=== PATIENT | female | born 1970 | race Caucasian/White ===

== ENCOUNTER 2024-01-10 15:24 | Emergency (ER) | payer OTHER, SELFPAY ==
[2024-01-10 15:46] VITALS: BP 112/74; PULSE 63; TEMP 36.2; O2SAT 99; BMI 25.1
--- NOTE | 2024-01-10 15:56 | XR_ITS ---
Patient: SHANNAN MESSINA Facility:?[facility] Patient ID:?[id number] Site Patient ID:?[id number]. Site :?[id number] Study:?XRay-Extremity Left FOREARM-01/10/2024 4:06:26 PM Ordering Physician:?DR. HU Final Report: INDICATION: Injury, not otherwise described. COMPARISON: None available. TECHNIQUE: Views: 3 FINDINGS: Mineralization: Normal. Alignment: Normal. Bones and Joints: No fracture. Sensitivity of imaging for detection of trauma is improved with a specific history as to the anatomical region of concern. Soft Tissues: Focal posterior soft tissue swelling of the mid forearm. IMPRESSION: Focal soft tissue swelling described above. Dictated by Luis Alfredo Rowland MD @ 01/10/2024 4:24:11 PM Signed by:?Luis Alfredo Rowland MD @01/10/2024 4:24:11 PM (Electronic Signature)
--- NOTE | 2024-01-10 15:56 | XR_ITS ---
Patient: SHANNAN MESSINA Facility:?[facility] Patient ID:?[id number] Site Patient ID:?[id number]. Site :?[id number] Study:?XRay-Extremity Left HAND-01/10/2024 4:08:34 PM Ordering Physician:?DR HU Final Report: INDICATION: Injury, not otherwise described. COMPARISON: None available. TECHNIQUE: Views: 3 FINDINGS: Mineralization: Normal. Alignment: Normal. Bones and Joints: No fracture. Sensitivity of imaging for detection of trauma is improved with a specific history as to the anatomical region of concern. Soft Tissues: Suspected soft tissue swelling over the dorsal metacarpals on the lateral view for which correlation with clinical exam findings is recommended. IMPRESSION: Suspected soft tissue swelling described above. Dictated by Luis Alfredo Rowland MD @ 01/10/2024 4:25:31 PM Signed by:?Luis Alfreod Rowland MD @01/10/2024 4:25:31 PM (Electronic Signature)
--- NOTE | 2024-01-10 15:56 | ED.UPPEXIN ---
HPI - Extremity Injury (Upper) General Chief Complaint: Extremity Pain/Injury, Upper Stated Complaint: left arm and hand injury Time Seen by Provider: 01/10/24 15:46 History of Present Illness HPI narrative: This 53-year-old female comes in with an injury to left hand and forearm that occurred 2 days ago. She was getting ready to get onto her horse and a dog came here by in the horse got spooked. She is not sure all of what happened but she does have injury to her left hand and forearm. She does not report any other injury. She did not fall off the horse or hit her head. She does have significant bruising and swelling in her left hand and the volar aspect of her left forearm. There is some superficial abrasion but no laceration. Her range of motion is rather well preserved but impaired a bit with the swelling. Related Data Home Medications Medication Instructions Recorded Confirmed No Known Home Medications 08/21/22 08/21/22 Allergies Allergy/AdvReac Type Severity Reaction Status Date / Time Penicillins Allergy Severe optic Verified 08/21/22 13:46 neuritis Review of Systems Status of ROS: Reports: 10 or more systems reviewed and unremarkable except as noted in History and below Narrative: Constitutional: No fevers, no weight gain or loss. Eyes: No discharge. No vision changes. HENT: No congestion, no sore throat, no ear pain. Cardiovascular: No chest pain, no palpitations. Respiratory: No shortness of breath, no wheezes, no cough. Gastrointestinal: No abdominal pain, no vomiting, no diarrhea. Genitourinary: No dysuria, no hematuria. Musculoskeletal: Normal range of motion. Swelling and bruising involving left hand and forearm as described above. Skin: No rashes, no pruritis. Neurological: No dizziness, weakness, sensory change, speech change. Endo/Heme/Allergies: No bruising or bleeding. No polydipsia. Pysch: no suicidality, no anxiety, no insomnia. All other systems reviewed and are negative. PFSH PFSH Social History Smoking Status: Never smoker Non-prescribed substance use: denies use Exam Narrative: Exam Narrative: Constitutional: Well-developed, well-nourished, no acute distress. HEENT: Normocephalic, atraumatic. Neck: Normal range of motion. Nontender. Supple. Heart: Regular. No murmurs. Normal rate. Intact distal pulses. Lungs: Clear to auscultation. No chest discomfort. No wheezes, rhonchi, or rales. Abdomen: Normal bowel sounds. Nontender. No rebound tenderness. Genitalia: Deferred. Back: No midline tenderness. Normal range of motion. Extremities: Normal range of motion. Bruising on the dorsal aspect of the left hand with more tenderness by her report involving the base of the thumb. She also has bruising extending through most of her left forearm. Skin: Intact. No rash. Warm. No erythema or pallor. Neurologic: No altered sensation. No weakness. Alert and oriented. Psychiatric: No suicidality. No anxiety or depression. No insomnia. Nursing notes and vitals signs are reviewed. Const: Vital Signs, click to edit/add: Vital Signs - 24 hr 01/10/24 15:46 Temperature 97.2 F L Pulse Rate [Pulse Oximeter] 63 Blood Pressure [Ri ght Upper Arm] 112/74 Pulse Oximetry 99 Oxygen Delivery Me thod Room Air Course Vital Signs Vital signs: Initial Vital Signs Temperature 97.2 F L 01/10/24 15:46 Temperature Source Temporal Artery Scan 01/10/24 15:46 Pulse Rate 63 01/10/24 15:46 Pulse Rhythm Regular 01/10/24 15:46 Blood Pressure 112/74 01/10/24 15:46 Blood Pressure Mean 86 01/10/24 15:46 Blood Pressure Position Sitting 01/10/24 15:46 Pulse Oximetry 99 01/10/24 15:46 Oxygen Delivery Method Room Air 01/10/24 15:46 Vital Signs Temperature 97.2 F L 01/10/24 15:46 Pulse Rate 63 01/10/24 15:46 Blood Pressure 112/74 01/10/24 15:46 Pulse Oximetry 99 01/10/24 15:46 Oxygen Delivery Method Room Air 01/10/24 15:46 Temperature 97.2 F L 01/10/24 15:46 Pulse Rate 63 01/10/24 15:46 Blood Pressure 112/74 01/10/24 15:46 Pulse Oximetry 99 01/10/24 15:46 Oxygen Delivery Method Room Air 01/10/24 15:46 MDM - Extremity Injury (Upper) MDM Narrative Medical decision making narrative: This patient comes in with injury to her left hand and forearm that occurred a couple days ago as described above. X-ray imaging by my review shows no fracture or dislocation. There is some soft tissue swelling. Radiology report is pending. I did relay my interpretation results to the patient and she is satisfied with this and prefers to return home. We will call her if there is a discrepancy from the radiology report. She did receive a couple Gabriel wraps and I encouraged her to increase activity as tolerated. Discharge Plan Discharge Clinical Impression: Contusion of arm, left Patient Disposition: Home, Self-Care Condition: Stable Additional Instructions: Use [id number] medicines as needed and directed. Increase activity as tolerated. Follow up with MD return if worsening. Prescriptions: No Action No Known Home Medications Follow Up/Referrals: Jazzy Bond, [employer] [Primary Care Provider] - Stand Alone Forms: [employer] Info Instructions
== END 2024-01-10 16:54 | disposition home or self-care (01) ==
PROVIDERS: Emergency Provider Emergency Medicine Emergency Medical Services; PCP Registered Nurse
DX: S40.022A Contusion of left upper arm, initial encounter (principal)
CPT/HCPCS: 73090; 73130; 99283; 99284